=== PATIENT | male | born 1990 | race Caucasian/White ===

== ENCOUNTER → 2024-02-09 07:17 | Outpatient (REF) | payer OTHER, SELFPAY | LOC: HWRAD 07:17 | PROVIDERS: ATTENDING PHYSICIAN Physician Assistant | DX: R10.31 Right lower quadrant pain (principal) | CPT/HCPCS: 76882 ==

== ENCOUNTER → 2024-03-22 19:29 | Outpatient (REF) | payer OTHER, SELFPAY | LOC: MRI 3T 19:29 | PROVIDERS: ATTENDING PHYSICIAN Physician Assistant | DX: R10.32 Left lower quadrant pain (principal) | CPT/HCPCS: 72197 ==